=== PATIENT | female | born 1960 | race Caucasian/White ===

== ENCOUNTER → 2016-04-14 | Outpatient (CLI) | payer OTHER ==
--- NOTE | 2016-04-14 23:43 | DX ---
DEXA Bone Mineral Densitometry Clinical Indications: Evaluate for osteoporosis in a 56-year-old postmenopausal female. Technique: Bone Mineral Densitometry (BMD) by Dual Energy X-Ray Absorptiometry (DEXA) was performed utilizing the [employer] scanner. The lumbar spine was evaluated in the AP projection. The bilat eral hips and forearm were evaluated in the AP projection. Vertebral fracture assessment was also p erformed. Comparison: February 17, 2013. AP Lumbar Spine: The L1, L2, L3, and L4 vertebral bodies were evaluated. BMD: 1.179 gm/cm2. T-score: 0 SD. Z-score: 0.7 SD. -7.3% change. AP Left Hip: Total BMD: 0.956 gm/cm2. T-score: -0.4 SD. Z-score: 0.2 SD. 1.1% increase from the prior exam. AP Right Hip: Total BMD: 0.935 gm/cm2. T-score: -0.6 SD. Z-score: 0 SD. -2.2% change from the prior examination. AP Left Forearm, 04/07: BMD: 0.905 gm/cm2. T-score: 0.3 SD. Z-score: 0.9 SD. -10.3% change from the prior examination. Vertebral Fracture Assessment: No significant fracture deformity. No prevertebral aortic calcificat ion, significant marginal bone spurring, facet arthrosis, or intrinsic vertebral body sclerosis that would effect the accuracy of the lumbar spine BMD measurement. Conclusion: Considering the lowest measured site, the patient is within normal bone mineral density for age. The ten year FRAX risk for any major osteoporotic fracture , which excludes the risk for a wrist frac ture, is 12.6% and for a hip fracture is 0.4%. Any bone loss in this patient is probably related to aging or estrogen deficiency. To prevent osteoporosis and to promote the patient's bone density, the following recommendations shou ld be considered: 1. Pursue a regular regimen of weightbearing and muscle strengthening exercises in order to reduce t he risk of falls and fractures (as tolerated by the patient's general medical condition). 2. Ensure that daily dietary calcium uptake is maximized. 3. Consider checking the serum vitamin D level. Ensure that intake of vitamin D is 600 IU per day (f or all ages through 70) 800 IU per day (for ages 71 and older). 4. Consider follow-up DEXA scan in 2 to 5 years to assess the rate of bone loss in this patient.
== END ==
LOC: FIMAGING 09:38
PROVIDERS: ATTEND Internal Medicine
DX: Z13.820 Encounter for screening for osteoporosis (principal); Z78.0 Asymptomatic menopausal state

== ENCOUNTER → 2017-12-28 | Outpatient (CLI) | payer OTHER | LOC: BMCIMAGING 14:22 | PROVIDERS: ATTEND Orthopaedic Surgery | DX: M17.0 Bilateral primary osteoarthritis of knee (principal); M25.461 Effusion, right knee ==

== ENCOUNTER → 2018-03-23 | Outpatient (CLI) | payer OTHER | LOC: BMCIMAGING 10:31 | PROVIDERS: ATTEND Internal Medicine | DX: R05 Cough (principal); R53.83 Other fatigue; M79.89 Other specified soft tissue disorders ==

== ENCOUNTER → 2018-03-24 | Outpatient (CLI) | payer OTHER | LOC: FIMAGING 12:41 | PROVIDERS: ATTEND Internal Medicine | DX: R22.2 Localized swelling, mass and lump, trunk (principal) ==

== ENCOUNTER → 2018-04-12 | Outpatient (CLI) | payer OTHER ==
[~2018-04-12] MED LIST: IOPAMIDOL (ISOVUE 370) 100 ML BTL IV ONE
== END ==
LOC: FIMAGING 14:40
PROVIDERS: ATTEND Internal Medicine
DX: M54.2 Cervicalgia (principal)
CPT/HCPCS: Q9967

== ENCOUNTER → 2018-05-23 | Outpatient (CLI) | payer OTHER ==
--- NOTE | 2018-05-23 15:00 | GHP ---
[f rep st] PREOP HISTORY AND PHYSICAL PROBLEM: Left knee arthritis. HISTORY OF PRESENT ILLNESS: The patient is a 58-year-old woman admitted for a left total knee arthro plasty. She has a long history of problems with her left knee. She has had a previous ACL reconstru ction. The last couple of years, she has had progressive pain. She has tried viscosupplementation i njections with minimal benefit. Her activities are now limited because of her left knee pain. She h as failed nonsurgical treatment. She is admitted for a Poli assisted left total knee arthroplasty. PAST MEDICAL HISTORY: Overall, she is in good general health. No history of heart disease, stents, hepatitis, MRSA staph infection, or hereditary bleeding disorders. She has mild sleep apnea and uses some type of mouth device. When she was in college, she had some type of calf injury that produced a localized traumatic hematoma in her calf. She does not think she was treated with anticoagulation medication. CURRENT MEDICATIONS: Lorazepam p.r.n. for sleep. ALLERGIES: Drug allergies: None. Metal allergy: None. Latex allergy: None. SOCIAL HISTORY: She is . She does not smoke cigarettes and occasionally drinks alcohol. She is working in business consulting. FAMILY HISTORY: Positive for cancer. PHYSICAL EXAMINATION: VITAL SIGNS: Height 5 feet 5 inches. Weight 160 pounds. BMI 26.6. EYES: C onjunctivae and sclerae are clear. Pupils are round and reactive. MOUTH: Good oral hygiene. No lo ose teeth. CHEST: Clear. HEART: Regular rhythm. No murmurs. EXTREMITIES: Pertinent findings li mited to her left knee. She has moderate effusion. She lacks 10 degrees of full extension and flexe s to 120 degrees. Her collateral and cruciate ligaments are stable. She has several scars on the fr ont of the knee from her previous ACL reconstruction. IMAGING: Films show degenerative arthritis in her medial and lateral compartments. She has medial c ompartment cartilage space narrowing. She has an Endo-Button and a screw from her previous ACL recon struction. IMPRESSION ON ADMISSION: Left knee degenerative arthritis, status post anterior cruciate ligament re construction. PLAN: She will undergo a Poli assisted left total knee arthroplasty. The surgery has been described to her, including the risks, complications, expectations, and recovery time. I have stressed the im portance of postoperative physical therapy. I advised her that a small percentage of people do not g et a satisfactory result with a total knee replacement and sometimes we cannot correct that. All her questions have been answered and she consents to surgery. Copy requested to: Dr. Bertha Tyler /[id number]/MODL
== END ==
LOC: FIMAGING 14:47
PROVIDERS: ATTEND Orthopaedic Surgery
DX: Z01.818 Encounter for other preprocedural examination (principal); M17.12 Unilateral primary osteoarthritis, left knee

== ENCOUNTER 2018-05-31 07:15 | Observation (INO) | payer OTHER ==
[2018-06-07] MEDS ORDERED: TRANEXAMIC ACID 1,000 MG in NS 100 ML IV ONE (06:00)
[2018-06-07] MEDS ORDERED: ROPIVACAINE 0.2% 80 MG, EPINEPHrine 0.2 MG, KETOROLAC TROMETHAMINE 30 MG in SYRINGE 0 ML IU ONE (06:00)
[2018-06-07] MEDS ORDERED: TRANEXAMIC ACID 3,000 MG in NS (SYRINGE) 50 ML IRR ONE (06:00)
[2018-06-07] MEDS ORDERED: POVIDONE-IODINE 20 ML in SODIUM CL IRRIG SOLUTION 500 ML IRR ONE (06:00)
[2018-06-07] MEDS ORDERED: ACETAMINOPHEN 325 MG TAB PO ONE (06:08)
[2018-06-07] MEDS ORDERED: ONDANSETRON 4 MG/2 ML VIAL IVP ONE (06:08)
[2018-06-07] MEDS ORDERED: FAMOTIDINE 20 MG TAB PO ONE (06:08)
[2018-06-07] MEDS ORDERED: ceFAZolin 2 GM/DEXTROSE 100 ML IV ONE (06:08)
[2018-06-07] MEDS ORDERED: DEXAMETHASONE 4 MG/ML VIAL IVP ONE (06:08)
[2018-06-07] MEDS ORDERED: GABAPENTIN 300 MG CAP PO ONE (06:08)
[2018-06-07] MEDS ORDERED: LR 1,000 ML IV ONE (06:10)
[2018-06-07] MEDS ORDERED: ceFAZolin 1 GM/5 ML SYR ONE (06:40)
[2018-06-07] MEDS ORDERED: TRANEXAMIC ACID 3,000 MG/50 ML BAG IRR ONE (06:40)
--- NOTE | 2018-06-07 07:00 | PDHPUP ---
History & Physical Update H&P update statement: This history and physical update is based on an assessment of the patient which was completed after admission or registration (within 24 hours), but prior to the surgery/procedure. H&P update: H&P reviewed & patient examined
[2018-06-07] MEDS ORDERED: MIDAZOLAM 2 MG/2 ML VIAL ONE (07:04)
[2018-06-07] MEDS ORDERED: MIDAZOLAM 2 MG/2 ML VIAL IVP ONE (07:07)
--- NOTE | 2018-06-07 07:07 | PDANEPAE ---
ANE History of Present Illness left knee pain ANE Past Medical History - Cardiovascular History Hx Hypertension: No Hx Arrhythmias: No Hx Chest Pain: No Hx Coronary Artery / Peripheral Vascular Disease: No Hx CHF / Valvular Disease: No Hx Palpitations: No - Pulmonary History Hx COPD: No Hx Asthma/Reactive Airway Disease: No Hx Recent Upper Respiratory Infection: Yes Hx Oxygen in Use at Home: No Hx Sleep Apnea: No Sleep Apnea Screening Result - Last Documented: Negative Pulmonary History Comment: MILD DIPTI USES ORAL GUARD. EXERCISE INDUCED ASTHMA. URI WITH ANTIBIOTICS 05/2018. STILL SOME POST NASAL DRIP- pt states has significant coughing when laying down from post nasal drip - Neurologic History Hx Cerebrovascular Accident: No Hx Seizures: No Hx Dementia: No - Endocrine History Hx Diabetes: No Hypothyroid: No Hyperthyroid: No Obesity: no - Renal History Hx Renal Disorders: No - Liver History Hx Hepatic Disorders: No - Neurological & Psychiatric Hx Hx Neurological and Psychiatric Disorders: Yes Neurological / Psychiatric History Comment: ANXIETY - Cancer History Hx Cancer: No - Congenital Disorder History Hx Congenital Disorders: No - GI History GERD: no Hx Gastrointestinal Disorders: No - Other Health History Other Health History: DVT IN HIGH SCHOOL RELATED TO GYMNASTICS. OSTEOARTHRITIS - Chronic Pain History Chronic Pain: Yes (RT KNEE) - Surgical History Prior Surgeries: RT KNEE SCOPE/ACL X2. RT SHLDR BICEP,LABRUM,RTC. LT SHLDR LABRUM. THUY CARPAL TUNNEL. LT BUNIONECTOMY ANE Review of Systems Review of systems is: negative Review of Systems: - Exercise capacity Exercise capacity: >=4 METS METS (RN): 4 METS ANE Patient History - Allergies Allergies/Adverse Reactions: No Known Allergies Allergy (Unverified 04/28/18 11:25) - Home Medications Home medications: home medication list seen and reviewed Home Medications: Estradiol [Estrace Vaginal (*)] 1 alfonso VG TUTH 04/28/18 [Last Taken 06/03/18] LORazepam [Ativan (*)] 0.25 mg PO HS PRN 04/28/18 [Last Taken 06/05/18] Albuterol [Proventil Inhaler HFA (*)] 1 - 2 puffs IH Q4HRS PRN 05/27/18 [Last Taken Unknown] - NPO status NPO Status: no food or drink >8 hours NPO Since - Liquids (Date): 06/07/18 NPO Since - Liquids (Time): 02:00 NPO Since - Solids (Date): 06/06/18 NPO Since - Solids (Time): 21:00 - Anes Hx Anes Hx: no prior problems - Smoking Hx Smoking Status: Never smoked ANE Labs/Vital Signs - Vital Signs Vital Signs: reviewed preoperatively; see RN documention for details Blood Pressure: 115/76 Heart Rate: 62 Respiratory Rate: 16 O2 Sat (%): 95 Height: 165.1 cm Weight: 72.575 kg ANE Physical Exam - Airway Neck exam: FROM Mallampati Score: Class 2 - Pulmonary Pulmonary: no respiratory distress, clear to auscultation - Cardiovascular Cardiovascular: regular rate and rhythym - ASA Status ASA Status: II ANE Anesthesia Plan Anesthesia Plan: spinal (discussed using airway device if coughing becomes issue througout case)
[2018-06-07] MEDS ORDERED: PROPOFOL/EMULSION 500 MG/50 ML BOTTLE IV ONE ×2 (07:09→07:47)
[2018-06-07] MEDS ORDERED: PHENYLEPHRINE HCL 100 MCG/ML SYR IVP PRN (08:21)
[2018-06-07] MEDS ORDERED: ALBUTEROL 3 ML DEYVIAL IH PRN (08:21)
[2018-06-07] MEDS ORDERED: LR 500 ML IV PRN (08:21)
[2018-06-07] MEDS ORDERED: oxyCODONE IR 5 MG TAB PO PRN (08:21)
[2018-06-07] MEDS ORDERED: ONDANSETRON 4 MG/2 ML VIAL IVP PRN ×2 (08:21→09:56)
[2018-06-07] MEDS ORDERED: MEPERIDINE 25 MG/0.5 ML AMP IVP PRN (08:21)
[2018-06-07] MEDS ORDERED: METOCLOPRAMIDE 10 MG/2 ML VIAL IVP PRN ×2 (08:21→09:56)
[2018-06-07] MEDS ORDERED: DEXAMETHASONE 4 MG/ML VIAL IVP PRN (08:21)
[2018-06-07] MEDS ORDERED: fentaNYL 100 MCG/2 ML INJ IVP PRN (08:21)
[2018-06-07] MEDS ORDERED: LABETALOL HCL 5 MG/ML 20 ML MDV IVP PRN (08:21)
[2018-06-07] MEDS ORDERED: PROMETHAZINE HCL 25 MG/ML INJ IVP PRN ×2 (08:21→09:56)
[2018-06-07] MEDS ORDERED: HYDROmorphONE/DILAUDID 2 MG/ML INJ IVP PRN (08:21)
[2018-06-07] MEDS ORDERED: NALOXONE HCL 0.4 MG/ML INJ IVP PRN (08:21)
[2018-06-07] MEDS ORDERED: ACETAMINOPHEN 500 MG TAB PO PRN (08:21)
[2018-06-07] MEDS ORDERED: ePHEDrine SULFATE 25 MG/5 ML SYR ONE (08:36)
[2018-06-07] MEDS ORDERED: PROPOFOL 200 MG/20 ML VIAL ONE ×2 (08:46→09:08)
[2018-06-07] MEDS ORDERED: ROPIVACAINE HCL 150 MG/30 ML INJ ONE (09:14)
[2018-06-07] MEDS ORDERED: ALBUTEROL 60 PUFFS/8 GM MDI IH PRN (09:55)
[2018-06-07] MEDS ORDERED: LORazepam 0.5 MG TAB PO PRN (09:55)
[2018-06-07] MEDS ORDERED: POLYETHYLENE GLYCOL 3350 17 GM PKT PO PRN (09:56)
[2018-06-07] MEDS ORDERED: TEMAZEPAM 15 MG CAP PO PRN (09:56)
[2018-06-07] MEDS ORDERED: DIPHENOXYLATE/ATROPINE LOMOTIL 1 TAB PO PRN (09:56)
[2018-06-07] MEDS ORDERED: PROMETHAZINE HCL 25 MG SUPPR PR PRN (09:56)
[2018-06-07] MEDS ORDERED: MAGNESIUM HYDROXIDE 30 ML UDCUP PO PRN (09:56)
[2018-06-07] MEDS ORDERED: LACTULOSE 20 GM/30 ML UDCUP PO PRN (09:56)
[2018-06-07] MEDS ORDERED: ONDANSETRON DISINTEGRATING 4 MG TAB PO PRN (09:56)
[2018-06-07] MEDS ORDERED: diphenhydrAMINE 25 MG CAP PO PRN (09:56)
[2018-06-07] MEDS ORDERED: BISACODYL 10 MG SUPP PR PRN (09:56)
[2018-06-07] MEDS ORDERED: NS 500 ML IV PRN (09:56)
[2018-06-07] MEDS ORDERED: CYCLOBENZAPRINE 10 MG TAB PO PRN (09:56)
[2018-06-07] MEDS ORDERED: LR 1,000 ML IV SCH (10:00)
[2018-06-07] MEDS ORDERED: ESTRADIOL 42.5 GM CRTUBE VG SCH (10:00)
--- NOTE | 2018-06-07 10:06 | POSTOPPROG ---
Post Op Note Date of Operation: 06/07/18 Surgeon: [place] Senior Solutions Engineer: Gentry Anesthesiologist: Ariela Anesthesia: IV Sedation, Spinal Post-op Diagnosis: Left knee severe degenerative arthritis Procedure: Poli left total knee arthroplasty Inf/Abcess present in the surg proc area at time of surgery?: No EBL: 50-100 (Adductor canal block with indwelling catheter in PACU)
[2018-06-07] MEDS ORDERED: traMADol 50 MG TAB ONE (11:01)
[2018-06-07] MEDS: traMADol 50 MG TAB PO PRN ×2 (11:01→23:55)
--- NOTE | 2018-06-07 11:32 | POSTANESTH ---
Post Anesthetic Evaluation Cardiovascular Status: Normal, Stable Respiratory Status: Normal, Stable Level of Consciousness/Mental Status: Can Participate in Eval Pain Control: Adequate, Prn Tx Ordered Nausea/Vomiting Control: Adequate, Prn Tx Ordered Complications Possibly Related to Anesthesia: None Noted
--- NOTE | 2018-06-07 11:36 | GOP ---
[f rep st] OPERATIVE REPORT DATE OF OPERATION: 06/07/2018 SURGEON: [place] MD COFOUNDER: Tan Rinaldi [facility], Carlos Medellin, PAC ANESTHESIA: Combination of Marcaine, spinal, IV sedation, and adductor canal block. ANESTHESIOLOGIST: Dr. Titus. PREOPERATIVE DIAGNOSIS: Left knee severe degenerative arthritis. POSTOPERATIVE DIAGNOSIS: Left knee severe degenerative arthritis. PROCEDURE PERFORMED: Left Poli robot assisted left total knee arthroplasty, press-fit. FINDINGS: DESCRIPTION OF PROCEDURE: The patient was given 2 g of IV Ancef preoperatively within 60 minutes of surgery. She also received 1000 mg of preoperative IV tranexamic acid. She was placed on the operating room table and given spinal anesthesia with Marcaine by Dr. Moss. She was then placed supine and given IV sedation. A Solano catheter was not used. She wore a BARBRA stocking and SCD on the nonoperative leg. Her left lower extremity was prepped with ChloraPrep from the upper thigh tourniquet to the tips of the toes. It was draped free using sterile sheets, stockinette, and Ioban plastic adhesive drape. Her lower leg was wrapped with compressive Coban. The [employer] Organization time-out was performed to verify the correct patient identity and the correct surgical side and site. The [place] time-out was also performed. The Clariticso leg holding device was sterilely attached to the operating room table and used throughout the procedure to help position the knee. Two 3 mm partially threaded pins were inserted in a bicortical fashion in the anteromedial cortex of the tibia through puncture about 4 inches distal to the tibial tubercle. At this point, the leg was exsanguinated with a 6-inch compressive wrap, and the pneumatic tourniquet was inflated to 250 mmHg. A straight midline incision was made centered on the patella. She had some small incisions on the anterior aspect of the knee from previous ACL surgery. I was careful to leave adequate skin bridges between the new incision and the old incisions. Subcutaneous tissues were sharply divided, and hemostasis was obtained using electrocautery. A medial subcutaneous flap was developed the capsule and synovium were opened in a medial parapatellar fashion. Her medial capsule and periosteum were lightly elevated off the rim of the medial tibial plateau. Two 3 mm partially threaded pins were inserted in the medial cortex of the distal femur in the supracondylar region inside the incision. The femoral checkpoint was inserted anterior to the 2 bicortical pins. The tibial check point was inserted in the anteromedial cortex of the tibia about an inch distal to the joint line. The computer arrays were attached and I confirmed that the femur and tibia arrays were both visualized by the computer. The bony anatomy of of the knee was registered on the computer starting with the center rotation of the femoral head, followed by the medial and lateral malleoli. The femoral and tibial surface anatomy were registered. Osteophytes were removed prior to joint balancing. I performed dynamic joint balancing. She was slightly tight medially. Preoperative plan called for a size 3 femur and a size 2 tibia. In order to achieve proper gap balancing, I added 2 degrees of varus to the tibia. I moved the femur 1 mm distal. I added 5 degrees of external rotation to the femur. I had 0.5 degrees of flexion to the femur to avoid notching the anterior cortex. I ended up with 18 to 19 mm gaps in extension and flexion. The robotic saw was position and registered. I made the appropriate cuts on the distal femur. The robot was registered for the tibia and the proximal tibial cut was made. I used the appropriate jig to create a notch in the distal femur using a power sagittal saw to accommodate the posterior stabilized femoral component. The size 3 femoral component was applied. I was careful to center it on the distal femur. The posterior compartment was cleared of meniscal remnants. Osteophytes were removed from the back femoral condyles. 40 mL of the joint anesthetic cocktail were injected into the posterior capsule, the quadriceps muscle and tendon areas , and the subcutaneous tissues along the skin edges. The tibia was sized for a size 2 component. I used the central fin punch. I then drilled 2 additional fixation holes on the medial tibial plateau for the press-fit component. This bone was quite dense. She had good quality bone and I was using press-fit components. With the trial components in place, I selected a 9 mm posterior stabilized tibial insert. The knee came to full extension. Her preoperative flexion contracture was corrected. She flexed to 135 degrees. Her collateral ligaments were stable and balanced in full extension and in 90 degrees of flexion. Her computer gaps were 18 to 19 mm medially and laterally in 10 degrees of flexion and 90 degrees of flexion. The press-fit tibia was inserted and tapped securely into place. It was a tight fit. The femoral component was tapped securely into place and was very tight. The 9 mm Triathlon plastic insert was inserted and locked into place. The tourniquet was deflated and total tourniquet time was 1 hour and 3 minutes. I then prepared the patella. The original thickness of the patella was measured. Peripheral osteophytes were removed. I cut a flat surface on the back of the patella. She was sized for a 32 mm x 10 mm asymmetric Triathlon Tritanium press-fit patellar component. I removed enough bone from the patella , such that the remaining bone, plus the thickness of the patellar component recreated the original thickness of the patella. Her composite thickness was 23 mm. The press fit patellar component was applied and tightened. Patellar tracking was checked. It was excellent without any digital pressure. The wound was thoroughly irrigated with a dilute Betadine solution. 50 cc of tranexamic acid solution were instilled into the joint. The vastus medialis portion of the extensor mechanism was repaired with several interrupted [id number] #2 FiberWire sutures. The capsule and synovium were closed first with multiple interrupted [id number] 0 PDS sutures, followed by a running #2 barbed Ethicon Stratafix PDO suture. Subcutaneous tissues were closed with running 0 barbed Ethicon Stratafix Monoderm suture. The skin was closed with a running 3-0 barbed Ethicon Stratafix Monoderm subcuticular suture. The skin was sealed with half-inch Steri-Strips. The wound was covered with a large sterile Mepilex waterproof dressing. A long-leg BARBRA stocking was applied, followed by 6 inch compressive wrap. The SCD was applied, followed by the cooling device. The sacrum Mepilex dressing was applied. I used a size 3 Dee Triathlon press-fit posterior stabilized femoral component, size 2 Triathlon Tritanium press-fit tibial component, a 32 mm x 10 mm asymmetric patellar press-fit component, and a 9 mm posterior stabilized tibial insert. The sponge and needle count were correct on 2 occasions. She was awakened from anesthesia, transferred to her gurglens fork, and taken to PACU in satisfactory condition. There were no recognized intraoperative complications. In the PACU for additional postoperative pain control, Dr. Moss performed an adductor canal block with an indwelling catheter. Tan Rinaldi and Dejuan Medellin acted as surgical assistants. Their assistance was a medical necessity for safe completion of the procedure. /[id number]/MODL MTDD
[2018-06-07] MEDS ORDERED: BUPIVACAINE/DEXTROSE 7.5MG/ML 2 ML SPINAL AMP SP ONE (11:37)
[2018-06-07] MEDS: KETOROLAC 15 MG/1 ML SDV IVP SCH ×3 (12:58→23:55)
[2018-06-07] MEDS: oxyCODONE IR 5 MG TAB PO PRN ×3 (13:04→20:20)
[2018-06-07] MEDS: ACETAMINOPHEN 325 MG TAB PO SCH ×2 (15:00→23:06)
[2018-06-07] MEDS: ceFAZolin 2 GM/DEXTROSE 100 ML IV SCH ×2 (15:00→23:07)
[2018-06-07] MEDS: ASPIRIN 325 MG TAB PO SCH (20:19)
[2018-06-07] MEDS: FAMOTIDINE 20 MG TAB PO SCH (20:21)
[2018-06-07] MEDS: SENNOSIDES/DOCUSATE SODIUM TAB PO SCH (20:21)
[2018-06-08] MEDS: ACETAMINOPHEN 325 MG TAB PO SCH ×2 (04:40→10:03)
[2018-06-08] MEDS: traMADol 50 MG TAB PO PRN ×2 (06:30→13:19)
[2018-06-08] MEDS: KETOROLAC 15 MG/1 ML SDV IVP SCH (06:31)
[2018-06-08] MEDS ORDERED: ROPIVACAINE HCL 150 MG/30 ML INJ ONE (07:27)
[2018-06-08] MEDS ORDERED: LIPID EMULSION 20% 100 ML IV PRN (07:37)
[2018-06-08] MEDS ORDERED: FERROUS SULFATE 325 MG TAB PO SCH (08:00)
[2018-06-08] MEDS: FAMOTIDINE 20 MG TAB PO SCH (08:33)
[2018-06-08] MEDS: SENNOSIDES/DOCUSATE SODIUM TAB PO SCH (08:33)
[2018-06-08] MEDS: ASPIRIN 325 MG TAB PO SCH (08:33)
--- NOTE | 2018-06-08 09:05 | PDPAINCON ---
Pain Management Consultation Patient referred by : Phu - Subjective Pain at rest (/10): 1 Pain with activity (/10): 1 Pain is: low, well controlled Side effects include: No drowsy, No itchiness, No nausea, No nausea/vomiting Activity: able to ambulate, out of bed with assistance - Objective Technique: continuous peripheral nerve block Site: femoral Continuous infusion: ropivicaine Catheter site: clean, dry, intact, no erythema/edema/exudate Sensory and motor exam: consistent with block Vital signs: stable - Assessment/Plan Assessment/Plan: pain well-controlled, continue current mgmt Additional comments: Catheter bolused with ropi 0.5% 30 ml, negative aspiration q % ml, pt tolerated well. Catheter removed atraumatic, tip intact.
--- NOTE | 2018-06-08 09:34 | SOAPPROG ---
SOAP Progress Note Assessment/Plan: Assessment: Awake and alert. Mild pain. She has been up and walking in her room. Her dressing is dry. Postop films look excellent. H&H today are good. Plan: Continue physical therapy today. Standing long leg alignment film prior to discharge. Discharge later today. She will go to outpatient physical therapy. 06/08/18 09:33 Objective: Vital Signs Temp Pulse Resp BP Pulse Ox 36.6 C 77 16 114/63 95 06/08/18 08:00 06/08/18 08:00 06/08/18 08:00 06/08/18 08:00 06/08/18 08:00 Laboratory Results 06/08/18 04:40 06/07/18 06/08/18 06/09/18 05:59 05:59 05:59 Intake Total 2940 Output Total 9170 900 Balance 190 -900 ICD10 Worksheet Patient Problems: Problems Problem Status Onset Osteoarthritis of left knee Acute
--- NOTE | 2018-06-08 09:41 | ASMTLACE ---
WILIAME Length of stay for Answers: 2 days current admission Acuity / Level of Answers: No Care: Did the patient have an inpatient admission? Comorbidities - select Answers: Opioid dependence all that apply / Chronic pain # of Emergency department Answers: 0 visits in the last 6 months Social determinants Answers: Mental health diagnosis (anxiety, depression, pers onality disorders, etc.) Score: 9 Date Signed: 06/08/2018 09:41 AM Electronically Signed By:AC Wright
--- NOTE | 2018-06-08 09:42 | ASMTCMCOM ---
CM Note CM Note Notes: Pt had planned OA of knee, resides with spouse. PT rec home/outpatient, MD rec outpatient. No CM d/c needs identified. Date Signed: 06/08/2018 09:42 AM Electronically Signed By:AC Wright
--- NOTE | 2018-06-08 10:03 | GDS ---
[f rep st] DISCHARGE SUMMARY ADMISSION DIAGNOSIS: Left knee degenerative arthritis. DISCHARGE DIAGNOSIS: Left knee degenerative arthritis. OPERATION PERFORMED: 06/07/2018, left knee Poli-assisted total knee arthroplasty. POSTOPERATIVE COMPLICATIONS: None. CONDITION ON DISCHARGE: Improved. DESCRIPTION OF HOSPITAL COURSE: The patient was admitted to the hospital on the morning of surgery. Her admission CBC was normal. The same day, under a combination of Marcaine, spinal, IV sedation, a nd adductor canal block, she underwent a Poli robot-assisted left total knee arthroplasty. Postopera tively, she was treated with multimodal DVT prophylaxis, including aspirin. On the 1st postoperative day, her hemoglobin and hematocrit were 11.6 and 33.9. She did not require transfused blood. She w as seen by Physical Therapy and made good progress with ambulation and stairs. By the time of discha rge, she was afebrile, and she was independent walking with a walker. DISPOSITION: Patient discharged to her home. She will go to outpatient physical therapy. She may p rogress to full weightbearing on the left as tolerated. Continue aspirin 325 mg p.o. daily for 21 da ys. Continue BARBRA stockings for 1 week. She has prescriptions for oxycodone, tramadol, and Celebrex for pain control. I will see her back in the office on 06/23/2018. If there are any problems, she i s to call me at the office. /[id number]/MODL
[2018-06-08 12:05] VITALS: BP 135/77
== END 2018-06-08 14:43 | disposition home or self-care (01) ==
LOC: INTOOBSV 06-07 05:52 → F3N 06-07 05:52
PROVIDERS: ADMIT Orthopaedic Surgery; ATTEND Orthopaedic Surgery
DX: M17.11 Unilateral primary osteoarthritis, right knee (principal); G47.33 Obstructive sleep apnea (adult) (pediatric); Z86.718 Personal history of other venous thrombosis and embolism
CPT/HCPCS: 27447; 73560; 77073; 97116; 97161; 97165; 97530; G0378; J0171; J0690; J1100; J1885; J2250; J2405; J2704; J2795

== ENCOUNTER 2018-06-08 19:35 | Emergency (ER) | payer OTHER ==
--- NOTE | 2018-06-08 19:46 | EDPHY ---
H & P Stated Complaint: yesterday had a total left knee surgery now having left calf pain Time Seen by Provider: 06/08/18 19:45 HPI/ROS: HPI: This is a 58-year-old female who presents with Chief Complaint: yesterday had a total left knee surgery now having left calf pain Location: Left calf Quality: Pain Duration: This morning Signs and Symptoms: No bleeding, no radiation, no numbness, no weakness, no tingling, no incontinence, no decreased range of motion, no swelling, + pain, no fever Timing: Acute Severity: [id number] Context: Patient is status post left total knee replacement yesterday by Dr. Bay presents with several hour history of left calf pain and discomfort. She has been wearing her compression stockings as prescribed. She took tramadol because her pain was 7/10. She went to [facility] and saw the PA who directed her to the emergency room for further evaluation of a DVT. She is a nonsmoker. Does take vaginal hormonal suppository. Denies warmth , weakness, bleeding, radiation, paresthesias. Modifying Factors: See above Comment: ROS: A comprehensive 10 system review of systems is otherwise negative aside from elements mentioned in the history of present illness. MEDICAL/SURGICAL/SOCIAL HISTORY: Medical history: exercise induced asthma, anxiety, OA, mild DIPTI (mouthguard) Surgical history: several orthopedic surgeries Social history: Never smoked. CONSTITUTIONAL: Polite and cooperative, adult white female, at bedside , awake and alert, no obvious distress HEENT: Atraumatic and normocephalic. NECK: supple, no midline tenderness Cardiovascular: Normal S1/S2, regular rate, regular rhythm, without murmur rub or gallop. PULMONARY/CHEST: Symmetrical and nontender. Clear to auscultation bilaterally. Good air movement. No accessory muscle usage. ABDOMEN: Soft, nondistended, nontender. EXTREMITIES: 2/2 pulses, strength 5/5, left lower leg shows compression stocking with anterior knee incision covered by a dressing that shows no bleeding. Minimal induration noted over incision site. No warmth/drainage. Mild left calf tenderness. Decreased flexion and extension secondary to surgery. good light touch sensation. no deformities, no clubbing, no cyanosis or edema. NEUROLOGICAL: no focal neuro deficits. GCS 15. Light touch sensation intact. SKIN: Warm and dry, no erythema. no rash. Good capillary refill. Source: Patient, RN/MD Exam Limitations: No limitations - Personal History Current Tetanus/Diphtheria Vaccine: Yes Current Tetanus Diphtheria and Acellular Pertussis (TDAP): Yes - Medical/Surgical History Hx Asthma: Yes Hx Chronic Respiratory Disease: No Hx Diabetes: No Hx Cardiac Disease: No Hx Renal Disease: No Hx Cirrhosis: No Hx Alcoholism: No Hx HIV/AIDS: No Hx Splenectomy or Spleen Trauma: No Other PMH: exercise induced asthma, anxiety, OA, mild DIPTI (mouthgaurd), several orthopedic surgeries - Social History Smoking Status: Never smoked Constitutional: Initial Vital Signs Temperature (C) 36.8 C 06/08/18 19:37 Heart Rate 63 06/08/18 19:37 Respiratory Rate 16 06/08/18 19:37 Blood Pressure 132/81 H 06/08/18 19:37 O2 Sat (%) 97 06/08/18 19:37 O2 Delivery Mode Room Air Allergies/Adverse Reactions: shellfish derived Allergy (Verified 06/08/18 19:39) Home Medications: Medication Instructions Recorded Estradiol [Estrace Vaginal (*)] 1 alfonso VG TUTH 04/28/18 Acetaminophen [Tylenol 325mg (*)] 650 mg PO Q6H tab 06/08/18 Aspirin [Aspirin 325 mg (*)] 325 mg PO DAILY tab 06/08/18 Ferrous Sulfate [Ferrous Sulf 325 325 mg PO BIDMEAL tab 06/08/18 MG (*)] Ondansetron Odt [Zofran Odt 4 mg 4 mg PO Q4HRS PRN tab 06/08/18 (*)] Sennosides/Docusate Sodium 1 - 2 tab PO BID tab 06/08/18 [Senokot-S] celeCOXIB [Celebrex (*)] 200 mg PO DAILY cap 06/08/18 oxyCODONE IR [Oxycodone Ir (*)] 5 - 10 mg PO Q3HRS PRN tab 06/08/18 traMADol [Ultram 50 mg (*)] 50 mg PO Q6HRS PRN tab 06/08/18 Medical Decision Making - Diagnostics Imaging Results: Imaging Impressions Extremity Venous Study 06/08/18 19:45 Impression: 1. No evidence of deep vein thrombosis in the left leg. 2. Probable posterior left mid calf hematoma, corresponding to area of pain. Findings and recommendations discussed with Radha Kearney at 8:50 PM hour, 06/08. Final report concurs with initial preliminary interpretation. ED Course/Re-evaluation: Vital signs reviewed and stable upon arrival. Left lower extremity ultrasound ordered 2044: Called by radiologist, Dr. Merritt, advised left lower extremity ultrasound is negative for DVT but does show hematoma measuring 3 cm x 2 mm in the proximal mid posterior calf for patient has pain. 2099: Called and updated the PA Lois at [phone]. She advised moist heat, continue to follow orthopedic discharge instructions and keep follow-up appointment with Dr. Bay in 10 days. No signs of neurovascular compromise/tenting of skin/compartment syndrome/ extremities and joints examined above and below area of concern and are neurovascularly intact/cellulitis/wound dehiscence. This patient was seen under the supervision of my secondary supervising physician. I evaluated care for this patient independently. Discussed this patient with Dr. Abebe who did not see the patient. Differential Diagnosis: Leg swelling including but not limited to hypoalbuminemia, congestive heart failure, cor pulmonale, chronic venous stasis and DVT. Departure - Departure Disposition: Home, Routine, Self-Care Clinical Impression: H/O total knee replacement Qualifiers: Laterality: left Qualified Code(s): Z96.652 - Presence of left artificial knee joint Traumatic hematoma of left lower leg Qualifiers: Encounter type: initial encounter Qualified Code(s): S80.12XA - Contusion of left lower leg, initial encounter Condition: Good Instructions: Hematoma (ED) Additional Instructions: Please follow orthopedic discharge instructions. Keep follow-up appoint with Dr. Bay in 10 days. Apply moist heat to left calf for 30 minutes at a time; 2-3 times per day for the next 2-3 days. Continue to wear compression stockings as advised. Referrals: Bertha Cole MD [Primary Care Provider] - As per Instructions Milton Bay MD [Medical Doctor] - As per Instructions
[2018-06-08] MEDS ORDERED: oxyCODONE IR 5 MG TAB PO ONE (20:55)
[2018-06-08 21:05] VITALS: BP 116/66
== END 2018-06-08 21:19 | disposition home or self-care (01) ==
DX: S80.12XA Contusion of left lower leg, initial encounter (principal); Z98.890 Other specified postprocedural states; Z96.652 Presence of left artificial knee joint

== ENCOUNTER → 2018-08-10 | Outpatient (CLI) | payer OTHER | LOC: FIMAGING 13:18 | PROVIDERS: ATTEND Internal Medicine | DX: Z12.31 Encounter for screening mammogram for malignant neoplasm of breast (principal) ==